=== PATIENT | female | born 1995 | race Native Hawaiian/Other Pacific Islander ===

== ENCOUNTER 2021-04-29 23:36 | Emergency (ER) | payer OTHER ==
[~2021-04-29] VITALS: Ht 162.6 cm; Wt 95.3 kg
[2021-04-29] MEDS ORDERED: CLON0.5T36 PO (23:50)
[2021-04-30 00:15] LABS: PLATELET COUNT 226 K/uL (152-353)
[2021-04-30 00:32] LABS: PARTIAL THROMBOPLASTIN TIME 28.7 SECONDS (24.5-33.6)
[2021-04-30 01:27] VITALS: BP 132/68
== END 2021-04-30 01:27 | disposition home or self-care (01) ==
LOC: ED 23:36
PROVIDERS: Hospitalist
DX: L02.31 Cutaneous abscess of buttock (principal)
CPT/HCPCS: 36415; 80048; 85027; 85610; 85730; 96365; 96375; 99284; J1885; J2405; J3370